=== PATIENT | male | born 1990 | race Caucasian/White ===

== ENCOUNTER 2017-11-14 01:05 | Emergency (ER) | payer OTHER ==
[~2017-11-14] VITALS: Ht 172.7 cm; Wt 90.7 kg
[2017-11-14] MEDS ORDERED: AMOXICILLIN500 MG PO (04:49)
== END 2017-11-14 05:10 | disposition home or self-care (01) ==
LOC: ED 01:05
DX: J01.90 Acute sinusitis, unspecified (principal)
CPT/HCPCS: 71046; 80053; 81001; 85025; 99284